=== PATIENT | male | born 1940 | race Two or more races ===

== ENCOUNTER 2021-08-23 12:31 | Outpatient (CLI) | payer OTHER | END 2021-08-23 12:32 | disposition home or self-care (01) | LOC: LAB 12:31 | PROVIDERS: ATTEND Urology | DX: R97.20 Elevated prostate specific antigen [PSA] (principal) ==

== ENCOUNTER 2021-09-14 07:25 | Outpatient (CLI) | payer OTHER | END 2021-09-14 07:27 | disposition home or self-care (01) | LOC: SONOGRAMA 07:25 | PROVIDERS: ATTEND Urology | DX: R97.20 Elevated prostate specific antigen [PSA] (principal) ==

== ENCOUNTER 2021-10-24 06:58 | Day surgery (SDC) | payer OTHER ==
[~2021-10-24 06:58] MED LIST: AMLODIP PO; ATORVASTATIN CA10 MG PO; CARDURA PO; GABAPENTIN300 MG PO; TAMS0.4C PO; TEGRETOL200 MG PO; VITAMIN D PO
[2021-10-24] MEDS ORDERED: PERCOCET 5-3251 EACH PO (12:54)
[2021-10-24] MEDS ORDERED: POLY119PG PO (12:54)
== END 2021-10-24 15:00 | disposition home or self-care (01) ==
LOC: CIR.AMB 06:58
PROVIDERS: ATTEND Surgery
DX: K40.91 Unilateral inguinal hernia, without obstruction or gangrene, recurrent (principal); Z88.6 Allergy status to analgesic agent; I10 Essential (primary) hypertension; N40.0 Benign prostatic hyperplasia without lower urinary tract symptoms
CPT/HCPCS: 49651; C1781